=== PATIENT | female | born 1975 | race Caucasian/White ===

== ENCOUNTER 2017-08-17 21:13 | Emergency (ER) | payer MEDICAID ==
[~2017-08-17] VITALS: Ht 154.9 cm; Wt 63.5 kg
[2017-08-17 21:28] VITALS: BP_SYST 149
[2017-08-18 02:50] VITALS: BP_SYST 145
== END 2017-08-18 02:50 | disposition home or self-care (01) ==
LOC: SED 21:13
DX: B34.9 Viral infection, unspecified (principal); I10 Essential (primary) hypertension; F41.9 Anxiety disorder, unspecified; E78.00 Pure hypercholesterolemia, unspecified; Z90.49 Acquired absence of other specified parts of digestive tract
CPT/HCPCS: 71046-TC; 99284

== ENCOUNTER 2021-10-19 07:13 | Day surgery (SDC) | payer MEDICAID, SELFPAY ==
[~2021-10-19] VITALS: Ht 154.9 cm; Wt 61.7 kg
[2021-10-19] MEDS ORDERED: MIDAZOLAM HCL 5 MG/5 ML VIAL ONE (07:39)
[2021-10-19] MEDS ORDERED: MEPERIDINE 100 MG INJ. 100 MG/ML VIAL ONE (07:39)
[2021-10-19 07:50] LABS: HCG,QUAL RESULT NEGATIVE (NEGATIVE)
[2021-10-19 13:03] VITALS: BP_SYST 155
== END 2021-10-19 12:49 | disposition home or self-care (01) ==
LOC: SDS 07:13 → SMU 07:15 → SDS 12:49
PROVIDERS: ATTEND Internal Medicine Gastroenterology
DX: R10.13 Epigastric pain (principal); K29.50 Unspecified chronic gastritis without bleeding; K44.9 Diaphragmatic hernia without obstruction or gangrene; Z20.822 Contact with and (suspected) exposure to COVID-19; Z79.899 Other long term (current) drug therapy
CPT/HCPCS: 36415; 43239; 84703; 87081; 87426; 88305; 88312; 88313; 99152; G0378; J2175; J2250; U0003

== ENCOUNTER 2024-01-19 03:58 | Emergency (ER) | payer MEDICAID ==
[~2024-01-19] VITALS: Ht 157.5 cm; Wt 67.1 kg
[2024-01-19 04:06] VITALS: BP_SYST 132; PULSE 81; RESP 20; TEMP 97.9; O2SAT 100
[2024-01-19] MEDS: DEXAMETHASONE SOD PHOSPHATE 4 MG/ML VIAL PO ONE (04:43)
[2024-01-19] MEDS: MAG-AL HYDROX/SIMETH 30 ML UDC PO ONE (04:43)
[2024-01-19] MEDS: FAMOTIDINE 20 MG TABLET PO ONE (04:43)
[2024-01-19] MEDS: KETOROLAC TROMETHAMINE 30 MG VIAL IM ONE (04:44)
[2024-01-19] MEDS ORDERED: CALC355O19 PO (05:13)
[2024-01-19 05:21] VITALS: BP_SYST 132; PULSE 81; RESP 20; TEMP 97.9; O2SAT 100
== END 2024-01-19 05:21 | disposition home or self-care (01) ==
LOC: SED 03:58
DX: J02.9 Acute pharyngitis, unspecified (principal); R05.9 Cough, unspecified; K21.9 Gastro-esophageal reflux disease without esophagitis; K29.70 Gastritis, unspecified, without bleeding; I10 Essential (primary) hypertension; E78.5 Hyperlipidemia, unspecified; Z79.899 Other long term (current) drug therapy
CPT/HCPCS: 99284; 96372; J1100; J1885